=== PATIENT | female | born 1980 | race Caucasian/White ===

== ENCOUNTER 2021-02-20 03:26 | Emergency (ER) | payer OTHER ==
[~2021-02-20 03:26] MED LIST: FLEXERIL10 MG PO; IBUPROFEN800 MG PO; MEDROL 4MG DOSEP4 MG PO; NORCO 5-325 TA1 EACH PO; VOLTAREN **OUT75 MG PO; ZOFRAN4 MG SL
[2021-02-20 04:05] LABS: BASOPHIL 0 % (0-2); EOSINOPHIL 0 % (0-5); HCT 41.5 % (37.0-47.0); HGB 14.4 g/dl (12.5-16.0); LYMPHOCYTE 2.2 % (15-48); MCH 30.9 pg (25.0-31.0); MCHC 34.7 g/dL (32.0-36.0); MCV 89.1 fL (78.0-100.0); MONOCYTE 2.1 % (0-12); MPV 9.1 fL (6.0-9.5); NRBC 0; PLT 226 K/uL (150-400); RBC 4.66 M/uL (4.20-5.40); RDW 12.3 % (11.5-14.0); WBC 9.1 K/uL (4.0-10.5)
[2021-02-20 04:09] LABS: NEUTROPHIL 95.4 % (41-80)
[2021-02-20 04:16] LABS: ALBUMIN 3.9 g/dL (3.4-5.0); BILIRUBIN - TOTAL 0.8 mg/dL (0.2-1.0); CREATININE 0.74 mg/dL (0.51-0.95); GLOBULIN (CALCULATION) 3.3 g/dL; POTASSIUM 3.8 mmol/L (3.5-5.1); TOTAL PROTEIN 7.2 g/dL (6.4-8.2)
[2021-02-20 04:46] LABS: BILIRUBIN NEGATIVE (NEGATIVE); BLOOD TRACE-INTACT Ery/uL (NEGATIVE); CLARITY CLEAR (CLEAR); COLOR YELLOW (YELLOW); GLUCOSE (U) NORMAL (NORMAL); LEUKOCYTES NEGATIVE Leu/uL (NEGATIVE); NITRITE NEGATIVE (NEGATIVE); PROTEIN NEGATIVE (NEGATIVE); SPECIFIC GRAVITY >=1.030 (1.001-1.030); UROBILINOGEN 0.2 mg/dL (0.2-1.0); pH 5.5 (5.0-9.0)
[2021-02-20 04:53] LABS: BACTERIA 1+; URINARY WBC RARE
[2021-02-20] MEDS ORDERED: ONDANSETRON ODT4 MG SL (06:35)
== END 2021-02-20 06:45 | disposition home or self-care (01) ==
LOC: FER 03:26
PROVIDERS: Emergency Medicine Emergency Medical Services
DX: E86.0 Dehydration (principal); R11.2 Nausea with vomiting, unspecified; E28.2 Polycystic ovarian syndrome; Z79.84 Long term (current) use of oral hypoglycemic drugs
CPT/HCPCS: 36415; 74022; 80053; 81001; 83605; 83690; 85025; 87088; J1885; J2405; J7030